=== PATIENT | male | born 1995 | race Caucasian/White ===

== ENCOUNTER 2017-12-07 01:42 | Emergency (ER) | payer OTHER ==
[2017-12-07 01:52] VITALS: RESP 16; TEMP 98; O2SAT 99
[2017-12-07] MEDS ORDERED: Tdap Vaccine 0.5 ml Vial (10-64 yrs) IM ONE ×2 (02:12→02:19)
[2017-12-07 02:37] LABS: BASO # 0.1 K/uL (0.0-0.2); BASO % 0.7 % (0.0-2.0); EOS % 0.5 % (0.0-4.0); HEMOGLOBIN 16.1 g/dL (12.0-18.0); LYMPH # 1.9 K/uL (1.0-4.3); LYMPH % 24.1 % (20.0-40.0); MEAN CORPUSCULAR HEMOGLOBIN 30.5 pg (27.0-31.0); MEAN CORPUSCULAR HGB CONC 33.9 g/dL (33.0-37.0); MEAN PLATELET VOLUME 6.9 fl (7.2-11.7); MONO # 0.4 K/uL (0.0-0.8); MONO % 4.6 % (0.0-10.0); NEUT # 5.6 K/uL (1.8-7.0); NEUT % 70.1 % (50.0-75.0); RBC 5.29 Mil/uL (4.40-5.90)
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
[2017-12-07 02:47] LABS: ALB/GLOB RATIO 1.1 (1.0-2.1); ALBUMIN 4.4 g/dL (3.5-5.0); ALT/SGPT 109 U/L (21-72); AST/SGOT 64 U/L (17-59); BLOOD UREA NITROGEN 10 mg/dl (9-20); CALCIUM 8.7 mg/dL (8.4-10.2); GFR NON-AFRICAN AMERICAN > 60
[2017-12-07 04:44] VITALS: BP 100/71; PULSE 64
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
== END 2017-12-07 04:53 ==
LOC: H.ER 01:42
DX: F10.129 Alcohol abuse with intoxication, unspecified (principal); S09.90XA Unspecified injury of head, initial encounter; V43.52XA Car driver injured in collision with other type car in traffic accident, initial encounter; Y92.410 Unspecified street and highway as the place of occurrence of the external cause; J32.9 Chronic sinusitis, unspecified
CPT/HCPCS: 70450; 70486; 72125; 80053; 85025; 90471; 90715; 99284; G0480